=== PATIENT | female | born 1975 | race Caucasian/White ===

== ENCOUNTER → 2016-08-14 | Outpatient (CLI) | payer OTHER | LOC: EMI 08-07 13:45 | DX: M54.5 Low back pain (principal); M54.6 Pain in thoracic spine; M51.26 Other intervertebral disc displacement, lumbar region; M99.63 Osseous and subluxation stenosis of intervertebral foramina of lumbar region | CPT/HCPCS: 72146; 72148 ==

== ENCOUNTER 2020-05-11 16:51 | Emergency (ER) | payer OTHER ==
[2020-05-11] MEDS ORDERED: HYDROCODON-ACE1 EAC4 PO ×2 (17:55→18:18)
[2020-05-11] MEDS ORDERED: CYCLOBENZAPRINE10 MG PO (17:59)
== END 2020-05-11 18:34 | disposition home or self-care (01) ==
LOC: ER1 16:51
DX: S13.9XXA Sprain of joints and ligaments of unspecified parts of neck, initial encounter (principal); M54.9 Dorsalgia, unspecified; W19.XXXA Unspecified fall, initial encounter
CPT/HCPCS: 99283

== ENCOUNTER → 2021-01-14 | Outpatient (CLI) | payer OTHER ==
[~2021-01-14] MED LIST: CYCLOBENZAPRINE10 MG PO; HYDROCODON-ACE1 EAC4 PO
== END ==
LOC: KOH-I 15:41
DX: M79.601 Pain in right arm (principal)
CPT/HCPCS: 73030; 73060; 73080

== ENCOUNTER → 2021-01-30 | Outpatient (CLI) | payer OTHER | LOC: KOH-I 13:30 | DX: M25.511 Pain in right shoulder (principal); M25.521 Pain in right elbow; M79.601 Pain in right arm; M12.9 Arthropathy, unspecified; M75.51 Bursitis of right shoulder; M77.8 Other enthesopathies, not elsewhere classified | CPT/HCPCS: 73218; 73221 ==